=== PATIENT | female | born 1970 | race Caucasian/White ===

== ENCOUNTER 2016-11-09 17:16 | Emergency (ER) | payer OTHER ==
[2016-11-09 17:26] VITALS: BP 128/78; PULSE 84; TEMP 97.8; BMI 24.1
--- NOTE | 2016-11-09 17:56 | PDOC ---
History of Present Illness - General Chief Complaint: Cold Symptoms Stated Complaint: COLD SYMPTOMS Time Seen by Provider: 11/09/16 17:34 History Source: Patient - History of Present Illness Timing/Duration: reports: week Associated Symptoms: reports: cough, headache, nasal congestion, nasal drainage. denies: chest pain/soreness, dizziness, earache, facial pain, fever/ chills, lightheadedness, shortness of breath, sore throat, wheezing Past History - Past Medical History Allergies/Adverse Reactions: Allergies Allergy/AdvReac Type Severity Reaction Status Date / Time No Known Allergies Allergy Verified 11/09/16 17:22 Home Medications: Ambulatory Orders NK [No Known Home Medication] 11/09/16 Seizures: Yes Thyroid Disease: Yes - Psycho/Social/Smoking Cessation Hx Anxiety: No Suicidal Ideation: No Smoking History: Never smoked Have you smoked in the past 12 months: No Hx Alcohol Use: No Drug/Substance Use Hx: No Substance Use Type: None Review of Systems - Review of Systems Constitutional: No: Fever HEENTM: Yes: Nose Congestion. No: Ear Pain, Throat Pain Respiratory: Yes: Cough. No: Shortness of Breath ABD/GI: No: Diarrhea, Nausea, Vomiting *Physical Exam - Vital Signs Last Vital Signs Temp Pulse Resp BP Pulse Ox 97.8 F 84 18 128/78 97 11/09/16 17:22 11/09/16 17:22 11/09/16 17:22 11/09/16 17:22 11/09/16 17:22 - Physical Exam General Appearance: Yes: Appropriately Dressed. No: Apparent Distress HEENT: positive: Normal ENT Inspection, Normal Voice. negative: EOMI, Scleral Icterus (R), Scleral Icterus (L) Neck: positive: Supple. negative: Lymphadenopathy (R), Lymphadenopathy (L) Respiratory/Chest: positive: Lungs Clear, Normal Breath Sounds. negative: Respiratory Distress Integumentary: positive: Dry, Warm Neurologic: positive: Fully Oriented, Alert, Normal Mood/Affect Medical Decision Making - Medical Decision Making 11/09/16 17:50 46-year-old female, no significant history, here with cough, headache and nasal congestion 1 week. Denies ear pain, shortness of breath, fever, chills, nausea , vomiting or diarrhea. Taking [id number] medication with some relief but here to be evaluated. Patient well-appearing and stable with unremarkable exam. Most likely viral. Dc to continue supportive treatment at home and PMD follow-up as needed *DC/Admit/Observation/Transfer Diagnosis at time of Disposition: URI (upper respiratory infection) Qualifiers: URI type: unspecified viral URI Qualified Code(s): J06.9 - Acute upper respiratory infection, unspecified; B97.89 - Other viral agents as the cause of diseases classified elsewhere - Discharge Dispostion Disposition: HOME Condition at time of disposition: Good - Patient Instructions Printed Discharge Instructions: DI for Viral Upper Respiratory Infection -- Adult
== END 2016-11-09 17:57 | disposition home or self-care (01) ==
LOC: JERFT 17:16
DX: J06.9 Acute upper respiratory infection, unspecified (principal); B97.89 Other viral agents as the cause of diseases classified elsewhere
CPT/HCPCS: 99281-25

== ENCOUNTER 2017-11-06 14:39 | Emergency (ER) | payer OTHER ==
[2017-11-06 15:27] VITALS: BP 119/65; PULSE 76; TEMP 98; BMI 25.0
--- NOTE | 2017-11-06 15:28 | PDOC ---
Rapid Medical Evaluation Time Seen by Provider: 11/06/17 15:15 Medical Evaluation: Allergies Allergy/AdvReac Type Severity Reaction Status Date / Time No Known Allergies Allergy Verified 11/06/17 15:23 11/06/17 15:24 pt c/o: fever, headache, body aches x 3 days Pt on brief exam: vss, lcta Pt ordered for : none pt to proceed to the ED: Discharge Disposition - Diagnosis Myalgia - Referrals - Patient Instructions - Post Discharge Activity
--- NOTE | 2017-11-06 16:15 | PDOC ---
History of Present Illness - General Chief Complaint: Cold Symptoms Stated Complaint: R/O FLU Time Seen by Provider: 11/06/17 15:15 History Source: Patient Exam Limitations: No Limitations - History of Present Illness Initial Comments: 11/06/17 16:11 Patient is a 47-year-old female, no significant medical history currently on no medication presents with tactile fever, chills, body aches, headache for 4 days. Denies sore throat, no cough. Took Advil at 9 AM. Currently afebrile. Past Medical History: [Denies]. Allergies: No known allergies Medications: [None] Family History: Non-contributory Social History: Denies smoking, alcohol use, or IVDU Vital signs on arrival are [notable for pulse of 96.] Review of Systems GENERAL/CONSTITUTIONAL: [Fever and body aches. No weakness. No weight change.] HEAD, EYES, EARS, NOSE AND THROAT: [No change in vision. No ear pain or discharge. No sore throat. ] CARDIOVASCULAR: [No chest pain or shortness of breath.] RESPIRATORY: [No cough, wheezing, or hemoptysis.] GASTROINTESTINAL: [No nausea, vomiting, diarrhea or constipation. No rectal bleeding.] GENITOURINARY: [No dysuria, frequency, or change in urination.] MUSCULOSKELETAL: [No joint or muscle swelling or pain. No neck or back pain.] SKIN AND BREASTS: [No rash or easy bruising.] NEUROLOGIC: [No headache, vertigo, loss of consciousness, or loss of sensation.] PSYCHIATRIC: [No depression or anxiety.] ENDOCRINE: [No increased thirst. No abnormal weight change.] HEMATOLOGIC/LYMPHATIC: [No anemia, easy bleeding, or history of blood clots.] ALLERGIC/IMMUNOLOGIC: [No hives or skin allergy. No latex allergy.] Physical Exam: GENERAL: [The patient is awake, alert, and fully oriented, in no acute distress. ] HEAD: [Normal with no signs of trauma.] EYES: [Pupils equal, round and reactive to light, extraocular movements intact, sclera anicteric, conjunctiva clear.] ENT: [Ears normal, nares patent, oropharynx clear without exudates. Moist mucous membranes. No uvula deviation] NECK: [Normal range of motion, supple without lymphadenopathy, JVD, or masses.] LUNGS: [Breath sounds equal, clear to auscultation bilaterally. No wheezes, and no crackles.] HEART: [Regular rate and rhythm, normal S1 and S2 without murmur, rub or gallop. ] ABDOMEN: [Soft, nontender, normoactive bowel sounds. No guarding, no rebound. No masses. No bruising or abrasions] RECTAL : [Guaiac negative, normal rectal tone.] MUSCULOSKELETAL: [Normal range of motion, no edema. No clubbing or cyanosis. No cords, erythema, or tenderness. No CVA Tenderness with fist.] NEUROLOGICAL: [Cranial nerves II through XII grossly intact. Normal speech, normal gait.] PSYCH: [Normal mood, normal affect.] SKIN: [Warm, Dry, normal turgor, no rashes or lesions noted.] Past History - Past Medical History Allergies/Adverse Reactions: Allergies Allergy/AdvReac Type Severity Reaction Status Date / Time No Known Allergies Allergy Verified 11/06/17 15:23 Home Medications: Ambulatory Orders NK [No Known Home Medication] 11/09/16 CVA: No COPD: No DVT: No Dementia: No Seizures: No Thyroid Disease: Yes - Immunization History Immunization Up to Date: Yes - Suicide/Smoking/Psychosocial Hx Smoking History: Never smoked Have you smoked in the past 12 months: No Information on smoking cessation initiated: No Hx Alcohol Use: No Drug/Substance Use Hx: No Substance Use Type: None *Physical Exam - Vital Signs Last Vital Signs Temp Pulse Resp BP Pulse Ox 98.0 F 76 17 119/65 96 11/06/17 15:24 11/06/17 15:24 11/06/17 15:24 11/06/17 15:24 11/06/17 15:24 Medical Decision Making - Medical Decision Making 11/06/17 16:12 A/P: Patient with influenza-type illness, patient is currently afebrile, lungs are clear in assessment. We'll discharge patient home, supportive care, alternate Motrin and Tylenol as needed for fever increase fluids to prevent dehydration. If any increased cough, fever, vomiting, unable to eat or drink or other concerns return to ER *DC/Admit/Observation/Transfer Diagnosis at time of Disposition: Influenza-like illness - Discharge Dispostion Disposition: HOME Condition at time of disposition: Stable Admit: No - Referrals Referrals: Lula,Malik, MD [Primary Care Provider] - - Patient Instructions Additional Instructions: Please alternate Motrin and Tylenol as needed for fever. [place] diet. Please return to the ER with any chest pain, shortness of breath, unable to eat or drink, lethargy, fainting, or any other concerns. - Post Discharge Activity Forms/Work/School Notes: Back to Work
== END 2017-11-06 16:18 | disposition home or self-care (01) ==
LOC: JERFT 14:39 → JER 14:39 → JERFT 16:18
DX: J11.1 Influenza due to unidentified influenza virus with other respiratory manifestations (principal)
CPT/HCPCS: 99281-25